=== PATIENT | female | born 1995 | race Caucasian/White ===

== ENCOUNTER 2017-05-06 08:11 | Observation (INO) | payer OTHER ==
[2017-05-03 14:56] VITALS: BMI 25.9
[~2017-05-06] VITALS: Ht 167.6 cm; Wt 71.8 kg
[2017-05-06] VITALS (21 sets, daily range): BP systolic 114–138; BP diastolic 57–76; PULSE 86–120; RESP 13–27; Ht 167.6 cm; Wt 71.8 kg
[2017-05-06] MEDS ORDERED: HYDR-906 PO (08:57)
[2017-05-06] MEDS ORDERED: OXYC-438 PO (09:26)
[2017-05-06] MEDS ORDERED: morphine 2 MG INJ IV ONE ×2 (10:00)
[2017-05-06] MEDS ORDERED: MIDAZOLAM 1 MG/ML 2 ML INJ ONE (12:40)
[2017-05-06] MEDS ORDERED: FENTAnyl 50 MCG/ML VIAL ONE (12:41)
[2017-05-06] MEDS ORDERED: PHENYLephrine (100 MCG/ML) 5ML SYG ONE (12:57)
[2017-05-06] MEDS ORDERED: ROCURONIUM 50 MG INJ ONE (13:03)
[2017-05-06] MEDS ORDERED: SUCCINYLCHOLINE CHLORIDE 100 MG/5 ML SYG IV ONE (13:03)
[2017-05-06] MEDS ORDERED: LIDOCAINE 2% (SDV) 5 ML INJ ONE (13:03)
[2017-05-06] MEDS ORDERED: PROPOFOL 40 ML ONE (13:03)
[2017-05-06] MEDS ORDERED: CEFAZOLIN 1 GM INJ ONE ×2 (13:08→15:58)
[2017-05-06] MEDS ORDERED: FAMOTIDINE 20 MG INJ ONE (13:14)
[2017-05-06] MEDS ORDERED: DEXAMETHASONE 4 MG/ML 1 ML INJ ONE (13:14)
[2017-05-06] MEDS ORDERED: ONDANSETRON 4 MG INJ ONE (13:14)
[2017-05-06] MEDS ORDERED: ROPIVACAINE 0.5 % 30 ML VIAL ONE (13:45)
[2017-05-06] MEDS ORDERED: POLYMYXIN/BACITRACIN 1L IRRIG ONE (13:45)
[2017-05-06] MEDS ORDERED: POVIDONE IODINE 10% 28.4 GM OINT ONE (13:45)
[2017-05-06] MEDS ORDERED: HYDROmorphONE 2 MG/ML SYG ONE (14:17)
[2017-05-06] MEDS ORDERED: MEPERIDINE 25 MG INJ IV PRN (16:00)
[2017-05-06] MEDS ORDERED: DIPHENHYDRAMINE 50 MG INJ IV PRN (16:00)
[2017-05-06] MEDS ORDERED: OXYCODONE/ACETAMINOPHEN (5/325) TAB PO PRN (16:00)
[2017-05-06] MEDS ORDERED: FENTAnyl 50 MCG/ML VIAL IV PRN ×3 (16:00)
[2017-05-06] MEDS ORDERED: PROCHLORPERAZINE 10 MG INJ IV PRN (16:00)
[2017-05-06] MEDS ORDERED: ONDANSETRON 4 MG INJ IV PRN ×2 (16:00→17:30)
[2017-05-06] MEDS ORDERED: HYDROmorphONE (0.2 MG/ML) 10ML SYG IV PRN ×3 (16:00)
--- NOTE | 2017-05-06 16:28 | RADRPT ---
PROCEDURE: Intraoperative imaging of the left ankle with fluoroscopy. CLINICAL INDICATION: Left ankle pain. Intraoperative. TECHNIQUE: 19 images of the left ankle were obtained in the operating room with an image intensifi er. No radiologist was in attendance. Fluoroscopy time is 1.0 minutes. COMPARISON: No prior study is available for comparison. FINDINGS: Surgical instruments are noted overlying the left ankle. Images demonstrate open reduction and internal fixation of the distal fibula with a lateral plate an d multiple screws. There is also reduction and internal fixation of the medial malleolus with 2 felipe ulated screws. IMPRESSION: 1. Intraoperative imaging of the left ankle. RPTAT: QQ .Mike Harris MD, MD Date Time Electronically viewed and signed by .Mike Harris MD, MD on 05/06/2017 16:28 .R/
[2017-05-06] MEDS ORDERED: ACETAMINOPHEN 1000MG/100ML IV 100 ML ONE (16:46)
--- NOTE | 2017-05-06 17:11 | OPPN ---
Date/Time of Note Date/Time of Note DATE: 05/06/17 TIME: 17:09 Operative Report Preoperative Diagnosis right trimalleolar ankle fracture Postoperative Diagnosis same Operation/Procedure Performed ORIF right trimalleolar ankle fracture Surgeon Josiah valera Syed Anesthesia: general Estimated blood loss: 0 - 10 ml's Transfusion Required none Specimen none Grafts/Implants none Complications none ALLISON MALAGON MD May 06, 2017 17:11
--- NOTE | 2017-05-06 17:11 | HPN ---
Date/Time of Note Date/Time of Note DATE: 05/06/17 TIME: 17:11 Interval H&P Admission Note Pt. seen H&P reviewed: No system changes ALLISON MALAGON MD May 06, 2017 17:11
[2017-05-06] MEDS ORDERED: BISACODYL 10 MG SUPP PR PRN (17:30)
[2017-05-06] MEDS ORDERED: HYDROmorphONE 0.2 MG/ML PCA IV SCH (17:30)
[2017-05-06] MEDS ORDERED: CEFAZOLIN 1 GM INJ IV SCH (17:30)
[2017-05-06] MEDS ORDERED: morphine 10 MG INJ IV PRN (17:30)
[2017-05-06] MEDS ORDERED: DIPHENHYDRAMINE 25 MG CAP PO PRN (17:30)
[2017-05-06] MEDS: SENNA/DOCUSATE NA (8.6MG/50MG) TAB PO SCH (20:39)
[2017-05-06] MEDS: SOD CHLORIDE 0.9% 1,000 ML IV SCH (20:39)
[2017-05-06] MEDS: CEFAZOLIN 1 GM/50 ML (PMX) 50 ML IVPB SCH (20:39)
--- NOTE | 2017-05-06 21:48 | OPR ---
DATE OF OPERATION: 05/06/2017 PREOPERATIVE DIAGNOSIS: Unstable trimalleolar fracture dislocation, right ankle. POSTOPERATIVE DIAGNOSES: 1. Unstable trimalleolar fracture dislocation, right ankle. 2. Chondral injury in medial talar dome. 3. Fracture debris in the ankle. OPERATION PERFORMED: 1. Arthroscopy, right ankle, soft tissue distraction. 2. Extensive reaming of the ankle. 3. Open reduction and fixation of a comminuted fibular fracture with an A hole one-third tubular plate and lag screws. lag screws. 4. Open reduction and fixation medial malleolar fracture with two 4.0 cannulated screws. 5. Closed reduction posterior malleolar fracture. 6. Use of fluoroscopy to verify position and alignment of the fractures in appropriate position and reduction with the hardware in place. 7. Application of the wound VAC over the lateral wound. 8. Short-leg splint. SURGEON: Nickolas Rahman MD CAFE SERVER: Alma Lynch. ANESTHESIA: General. TOURNIQUET TIME: 138 minutes. OPERATIVE PROCEDURE: Patient taken to the operating and placed in supine position and satisfactory general anesthesia was given. The patient was not given a popliteal block because she had 1 last week. She still had some residual decreased sensation dorsally in the peroneal nerve distribution. The right leg was prepped and draped in the usual manner after 2 g Ancef intravenously. The fluoroscope was brought in and incision was made over the lateral malleolus. Dissection carried down the subcutaneous tissue. The periosteum was elevated. The fracture was comminuted. A portion of the fracture inserted on the syndesmotic ligament was broken. The fracture fragments were , all fracture debris was removed. Wound irrigated with antibiotic solution. The fracture was brought out to length and clamped with reduction clamp. One 3.5 interfragmentary screw was placed obliquely from anterior to posterior. The 2nd interfragmentary screw 2.7 was inserted with a washer to reduce the syndesmosis fragment from anterior to posterior. An 8 hole one-third tubular plate was then applied and bent over the tip of the fibula and 3 screws were placed above and 3 below. Anatomic reduction was achieved. Everything looked good on AP and lateral fluoroscopic views. The wounds irrigated with antibiotic solution and the muscles and periosteum was closed with a running 2-0 undyed Vicryl. The skin was closed temporarily with 3-0 black nylon just in a couple of areas before making a medial incision. A medial incision was then marked out and centered over the medial malleolus. Dissection carried down subcutaneous tissue. Fracture fragment was identified of medial malleolus. It was cleaned out with curettes, washed out, and irrigated. The arthroscope was then inserted in the ankle. There was a condylar injury without bony injury. The piece was removed about 6 mm in size. Debris was removed from the ankle with instrumentation. There was some mild cartilage injury in the medial malleolar articulation and along the medial talar dome. Central and lateral talar dome looked good. Fracture was well reduced laterally and the posterior malleolar fracture looked like it was reduced nicely as well. The wounds were then irrigated again with antibiotic solution. The medial malleolar fragment was reduced and held. Two guide pins for the 4.0 AO cannulated screw set were inserted to hold the reduction. It was checked in AP and lateral planes and revealed it was in good position and alignment. The 240 mm 4.0 cannulated screws were inserted. AP and lateral radiographs showed excellent anatomic alignment of the medial and lateral malleoli. Stress x-rays were done and the syndesmosis was intact On the lateral x-rays only about 10 percent of the posterior ankle area through the fracture, it was satisfactorily reduced and we did not feel a screw needed to be inserted. The wounds irrigated again. The tourniquet was released. Bleeders were coagulated. The deep tissues were closed with 2-0 undyed Vicryl and the periosteum was closed with a running 2-0 Vicryl. The subcutaneous tissue closed with 3-0 undyed Vicryl and the skin with 4-0 black nylon. The lateral wound was closed in a similar manner with 2-0 and 3-0 undyed Vicryl and 3-0 and 4-0 black nylon. A small wound VAC was then placed over the lateral wound. Dressings were placed in the medial wound. Compression dressing and posterior splints were applied in neutral position. At the end of procedure, sponge and needle count was correct. The patient tolerated the procedure well and brought to the recovery room. Fur Repair Inspector orthopedic surgeon was used at my request. The business office assistant helped to insert the screws while I held the fracture reduced both medially and laterally. Without a skilled orthopedic surgeon assisting me, this could not have been done and should be compensated appropriately. Dictated By: Nickolas Rahman MD /stephanie/so /Document#: [id number]
[2017-05-07 01:23] VITALS: BP 118/57; RESP 18
[2017-05-07] MEDS: SOD CHLORIDE 0.9% 1,000 ML IV SCH ×2 (03:11→13:04)
[2017-05-07] MEDS ORDERED: HYDROmorphONE 0.2 MG/ML PCA IV SCH (04:57)
[2017-05-07 05:12] VITALS: BP 114/62; PULSE 83; RESP 18
[2017-05-07] MEDS: CEFAZOLIN 1 GM/50 ML (PMX) 50 ML IVPB SCH ×2 (05:44→13:34)
--- NOTE | 2017-05-07 07:00 | PN ---
Date/Time of Note Date/Time of Note DATE: 05/07/17 TIME: 06:55 Assessment/Plan VTE Prophylaxis VTE Prophylaxis Intervention: SCD's Lines/Catheters IV Catheter Type (from Nrsg): Peripheral IV Urinary Cath still in place: No Assessment/Plan Chief Complaint/Hosp Course POD # 1 s/p right trimalleolar ankle fracture ORIF Problems: Assessment/Plan 1) NWB, elevation at all times 2) Pain control - POWER HAIR CLIPPER if needed, encourage orals 3) Plan for discharge once pain controlled on orals Subjective 24 Hr Interval Summary Free Text/Dictation Doing well. Minimal pain, still feeling numb. Exam/Review of Systems Vital Signs Vitals Vital Signs Date Time Temp Pulse Resp B/P Pulse Ox O2 Delivery O2 Flow Rate FiO2 05/07/17 05:12 99.2 83 18 114/62 98 Room Air Intake and Output 05/06/17 05/06/17 05/07/17 15:00 23:00 07:00 Intake Total 2000 ml 50 ml 1350 ml Output Total 20 ml 2500 ml Balance 2000 ml 30 ml -1150 ml Exam PE leg elevated toes WWP able to wiggle toes slightly slightly numb Results Results 24 hrs Laboratory Tests Test 05/07/17 06:25 Lab Scanned Report LAB Medications Medications Current Medications Senna/Docusate Sodium (Senokot-S) 1 tab BID PO Last administered on 05/06/17 20:39; Admin Dose 1 TAB; Start 05/06/17 at 21:00 Magnesium Hydroxide (Milk Of Mag) 30 ml HS PO ; Start 05/08/17 at 21:00 Bisacodyl 10 mg 10 mg DAILY PRN CO CONSTIPATION; Start 05/06/17 at 17:30 Sodium Chloride (NS) 1,000 ml @ 100 mls/hr Q10H IV Last administered on 20:39; Admin Dose 100 MLS/HR; Start 05/06/17 at 17:11 Oxycodone/ Acetaminophen (Percocet (5/ 325)) 2 tab Q4H PRN PO PAIN; Start 05/06 at 17:30 Morphine Sulfate (morphine) 5 mg Q4H PRN IV PAIN LEVEL 7-10; Start 05/06/17 at 17:30 Ondansetron HCl (Zofran Inj) 4 mg Q4H PRN IV NAUSEA AND/OR VOMITING Last administered on 05/06/17 20:55; Admin Dose 4 MG; Start 05/06/17 at 17:30 Diphenhydramine HCl 25 mg 25 mg Q4H PRN PO ITCHING; Start 05/06/17 at 17:30 Cefazolin Sodium (Ancef 1 Gm/50 ml (Pmx)) 50 ml @ 100 mls/hr Q8 IVPB Last administered on 05/07/17 05:44; Admin Dose 100 MLS/HR; Start 05/06/17 at 21:00 ; Stop 05/08/17 at 14:29 Hydromorphone HCl (Dilaudid POWER HAIR CLIPPER) MG/HR CONTINUOUS RATE ... Q4PCA IV Last administered on 05/07/17 05:02; Admin Dose 6 MG; Start 05/07/17 at 04:57 ALLISON MALAGON MD May 07, 2017 07:00
[2017-05-07] MEDS: OXYCODONE/ACETAMINOPHEN (5/325) TAB PO PRN ×2 (07:58→11:51)
[2017-05-07 08:11] VITALS: BP 120/66; RESP 16
[2017-05-07] MEDS: SENNA/DOCUSATE NA (8.6MG/50MG) TAB PO SCH (09:01)
[2017-05-08] MEDS ORDERED: MAGNESIUM HYDROXIDE 30ML CUP PO SCH (21:00)
--- NOTE | 2017-05-09 01:20 | DS ---
DATE OF ADMISSION: 05/06/2017 DATE OF DISCHARGE: 05/07/2017 DISCHARGE DIAGNOSES: 1. Displaced trimalleolar fracture, right ankle. 2. Fracture debris and chondral injury. PROCEDURES PEFORMED: 1. Surgery on 05/06/2015 with arthroscopy of the right ankle with extensive debridement. 2. Open reduction internal fixation of a trimalleolar fracture dislocation with plates and screws. HISTORY OF PRESENT ILLNESS: The patient is a 21-year-old female who was injured skateboarding and found to have an unstable fracture dislocation of her right ankle who is admitted now for surgery. PAST MEDICAL HISTORY: See the history and physical record. PHYSICAL EXAMINATION: Physical examination was normal except for orthopedic exam which revealed swelling in the ankle, but improved from a week ago. No obvious fracture blisters, some difficulty moving her toes dorsally, with some decreased sensation in the top of her great toe. LABORATORY DATA: Laboratory was normal. HOSPITAL COURSE: The patient was taken to the operating room and underwent the above-mentioned procedure. Postoperatively she was up ambulating on the first postoperative day. She will be discharged after being cleared by Physical Therapy to be followed up in the office in 1 week. She was discharged on pain medication with Percocet, antibiotics and Keflex. Dictated By: iNckolas Rahman MD /[email or web address]/scot /Document#: [id number]
== END 2017-05-07 15:45 | disposition home or self-care (01) ==
LOC: SDS 08:11 → REC 17:16 → SDS 17:16 → MS1 18:05
PROVIDERS: ADMIT Orthopaedic Surgery; ATTEND Orthopaedic Surgery
DX: S82.851A Displaced trimalleolar fracture of right lower leg, initial encounter for closed fracture (principal); S99.811A Other specified injuries of right ankle, initial encounter; M24.071 Loose body in right ankle; X58.XXXA Exposure to other specified factors, initial encounter; Y93.51 Activity, roller skating (inline) and skateboarding; Y99.9 Unspecified external cause status; Y92.9 Unspecified place or not applicable
CPT/HCPCS: 27822; 73610; 84703; 96365; 96366; 97162; 99217; C1713; G0378; J0131; J0690; J1100; J1170; J2250; J2270; J2370; J2405; J2795; J3010; J7030; J7999